=== PATIENT | female | born 1970 | race Two or more races ===

== ENCOUNTER 2025-03-23 06:24 | Inpatient (IN) | payer OTHER ==
[2025-03-16 14:21] VITALS: BMI 30.2
[2025-03-23] MEDS ORDERED: PROPOFOL 20 ML ONE ×3 (08:02→09:32)
[2025-03-23] MEDS ORDERED: MIDAZOLAM HCL 2 MG/2 ML SINGLE DOSE VIAL ONE (08:02)
[2025-03-23] MEDS ORDERED: ACETAMINOPHEN INJECTION 100 ML ONE (08:06)
[2025-03-23] MEDS ORDERED: ROCURONIUM BROMIDE 50 MG/5 ML SYRINGE ONE ×2 (08:16→09:14)
[2025-03-23] MEDS ORDERED: HYDROCORTISONE SOD SUCCINATE 100 MG/2 ML VIAL ONE (08:25)
[2025-03-23] MEDS ORDERED: DEXAMETHASONE SOD PHOSPHATE 4 MG/1 ML VIAL ONE (08:36)
[2025-03-23] MEDS: CEFEPIME HCL 1 GM VIAL (RESTRICTED TO ID) IVPB ONE (08:36)
[2025-03-23] MEDS ORDERED: NEOSTIGMINE METHYLSULFATE 0.5 MG/1 ML - 10 ML MDV ONE (09:55)
[2025-03-23] MEDS ORDERED: ACETAMINOPHEN 325 MG TABLET (FP) PO PRN (10:24)
[2025-03-23] MEDS ORDERED: IBUPROFEN 600 MG TABLET (FP) PO PRN (10:24)
[2025-03-23] MEDS ORDERED: SIMETHICONE 80 MG TAB.CHEW (FP) PO PRN (10:24)
[2025-03-23] MEDS ORDERED: SENNOSIDES/DOCUSATE COMBO (SENNA PLUS) TABLET (UD) PO PRN (10:24)
[2025-03-23] MEDS ORDERED: LACTATED RINGERS SOLUTION 1,000 ML IV SCH (10:30)
[2025-03-23] MEDS ORDERED: DEXTROSE 5%-LACTATED RINGERS 1,000 ML IV SCH (10:30)
[2025-03-23] MEDS: CEFAZOLIN SODIUM 2 GM in DEXTROSE 5%-WATER - 100 ML IVPB ONE (15:44)
[2025-03-23 17:40] VITALS: RESP 18
[2025-03-23] MEDS: CEFAZOLIN SODIUM 2 GM in DEXTROSE 5%-WATER 100 ML IVPB SCH (18:14)
[2025-03-24] MEDS: IBUPROFEN 800 MG/8 ML IJ IVPB PRN (05:58)
[2025-03-24 07:15] LABS: ABSOLUTE IMMATURE GRANULOCYTES 0.03 x10^3/uL (0.0-0.031); BASOPHILS # 0.01 x10^3/uL (0.01-0.08); EOSINOPHIL % 0.0 % (0.7-5.8); EOSINOPHILS # 0.00 x10^3/uL (0.04-0.36); MCHC 32.0 g/dl (32.2-35.5); MEAN CELL VOLUME 99.7 fl (79.4-94.8); MEAN PLT VOLUME 10.0 fl (9.4-12.3); MONOCYTE # 0.86 x10^3/uL (0.24-0.86); MONOCYTE % 7.6 % (4.7-12.5); RDW 12.2 % (12.3-16.6)
[2025-03-24] MEDS ORDERED: amLODIPine BESYLATE 10 MG TABLET (FP) PO SCH (10:00)
[2025-03-24 10:02] VITALS: BP 127/71; PULSE 60; TEMP 97.7
[2025-03-24] MEDS ORDERED: BISACODYL 10 MG SUPP.RECT RC PRN (10:24)
[2025-03-24] MEDS: amLODIPine BESYLATE 5 MG TABLET (FP) PO ONE (10:29)
[2025-03-24] MEDS: LISINOPRIL 10 MG TABLET PO ONE (10:29)
== END 2025-03-24 11:35 | disposition home or self-care (01) | DRG 743 ==
LOC: J2C 06:24 → J3W 14:07
PROVIDERS: ADMIT Obstetrics & Gynecology; ATTEND Obstetrics & Gynecology
PROC: 0UT70ZZ Resection of Bilateral Fallopian Tubes, Open Approach (ICD-10-PCS; 2025-03-23)
PROC: 0UT20ZZ Resection of Bilateral Ovaries, Open Approach (ICD-10-PCS; 2025-03-23)
PROC: 0UT90ZL Resection of Uterus, Supracervical, Open Approach (ICD-10-PCS; principal; 2025-03-23 08:00)
DX: D25.9 Leiomyoma of uterus, unspecified (principal)
CPT/HCPCS: 36415; 85025; 86850; 86900; 86901; 94010; 94760